=== PATIENT | female | born 1985 | race African-American/Black ===

== ENCOUNTER 2025-04-03 14:25 | Inpatient (IN) | payer OTHER ==
[2025-04-03 15:36] LABS: ABSOLUTE IMMATURE GRANULOCYTES 0.11 x10^3/uL (0.0-0.031); BASOPHILS # 0.02 x10^3/uL (0.01-0.08); EOSINOPHIL % 0.9 % (0.7-5.8); EOSINOPHILS # 0.11 x10^3/uL (0.04-0.36); MCHC 33.1 g/dl (32.2-35.5); MEAN CELL VOLUME 90.9 fl (79.4-94.8); MEAN PLT VOLUME 9.9 fl (9.4-12.3); MONOCYTE # 0.94 x10^3/uL (0.24-0.86); MONOCYTE % 7.9 % (4.7-12.5); RDW 14.7 % (12.1-16.8)
[2025-04-03 15:43] LABS: INR 0.95 (0.83-1.09); PROTHROMBIN TIME (PATIENT) 10.4 SEC (9.7-13.0)
[2025-04-03 15:46] LABS: ACTIVATED PTT 29.1 SECONDS (25.2-36.5)
[2025-04-03 16:11] LABS: CO2 20 mmol/L (21-32); GLUCOSE,RANDOM 91 mg/dL (74-106)
[2025-04-03 16:14] LABS: CREATININE 0.6 mg/dL (0.55-1.3)
[2025-04-03 16:27] VITALS: BMI 33.1
[2025-04-03] MEDS: ELECTROLYTE-148 SOLN 1,000 ML IV SCH (16:45)
[2025-04-03 16:59] LABS: HIV INTERPRETATION NEGATIVE (NEGATIVE)
[2025-04-03] MEDS ORDERED: OXYTOCIN 30 UNITS in 0.9% NS 30 UNIT/500 ML INFUS.BAG IVPB ONE (17:59)
[2025-04-03] MEDS ORDERED: AMPICILLIN SODIUM 2 GM VIAL ONE (18:30)
[2025-04-03] MEDS: OXYTOCIN 30 UNITS in 0.9% NS 30 UNIT/500 ML INFUS.BAG IVPB SCH (18:30)
[2025-04-03] MEDS: AMPICILLIN - 2 GM in SODIUM CHLORIDE 100 ML IVPB ONE (18:35)
[2025-04-03] MEDS ORDERED: SODIUM CHLORIDE 100 ML IVPB ONE (22:29)
[2025-04-03] MEDS ORDERED: AMPICILLIN SODIUM 1 GM VIAL ONE (22:29)
[2025-04-03] MEDS: AMPICILLIN - 1 GM in SODIUM CHLORIDE 100 ML IVPB SCH (22:35)
[2025-04-04] MEDS ORDERED: PROMETHAZINE HCL 25 MG/1 ML VIAL IVPB PRN (01:14)
[2025-04-04] MEDS ORDERED: BUTORPHANOL TARTRATE 1 MG/ML VIAL IVPUSH PRN (01:14)
[2025-04-04] MEDS ORDERED: FENTANYL/BUPIVACAINE/NS/PF - PCEA - 50 ML DISP.SYRIN EP ONE ×2 (02:21→06:27)
[2025-04-04] MEDS: FENTANYL/BUPIVACAINE/NS/PF - PCEA - 50 ML DISP.SYRIN EP SCH (02:40)
[2025-04-04] MEDS ORDERED: AMPICILLIN SODIUM 1 GM VIAL ONE ×2 (03:06→06:19)
[2025-04-04] MEDS ORDERED: SODIUM CHLORIDE 100 ML IVPB ONE ×2 (03:06→06:19)
[2025-04-04] MEDS ORDERED: NALOXONE HCL 0.4 MG/ML VIAL IVPUSH PRN (03:14)
[2025-04-04] MEDS ORDERED: OXYTOCIN 20 UNITS in 0.9% NS 20 UNIT/1,000 ML INFUS.BAG IV ONE (06:59)
[2025-04-04] MEDS ORDERED: LIDOCAINE HCL 1% PRESERVATIVE FREE - 30ML VIAL ONE (06:59)
[2025-04-04] MEDS: OXYTOCIN 20 UNITS in 0.9% NS 20 UNIT/1,000 ML INFUS.BAG IV SCH (08:30)
[2025-04-04] MEDS ORDERED: ACETAMINOPHEN 325 MG TABLET (FP) PO PRN (09:20)
[2025-04-04] MEDS ORDERED: WITCH HAZEL 50% (TUCKS) 40 PAD/JAR PAD TP PRN (09:20)
[2025-04-04] MEDS ORDERED: METHYLERGONOVINE MALEATE 0.2 MG/1 ML AMP IM PRN (09:20)
[2025-04-04] MEDS ORDERED: BENZOCAINE 28 GM HEMORRHOIDAL OINTMENT TP PRN (09:20)
[2025-04-04] MEDS ORDERED: BISACODYL 10 MG SUPP.RECT RC PRN (09:20)
[2025-04-04 09:37] LABS: CORD BASE EXCESS -4.7 mmol/L (0-2); CORD HCO3 21.6 mmHg (20-29); CORD PCO2 43.8 mmHg (30-78); CORD pH 7.31 (7.14-7.44)
[2025-04-04 09:37] LABS: CORD BASE EXCESS -6.3 mmol/L (0-2); CORD HCO3 21.6 mmHg (20-29); CORD PCO2 51.4 mmHg (30-78); CORD pH 7.241 (7.14-7.44)
[2025-04-04] MEDS: PRENATAL VITAMINS W/ FOLIC ACID TABLET (FP) PO SCH (11:34)
[2025-04-04] MEDS: IBUPROFEN 600 MG TABLET (FP) PO PRN (13:03)
[2025-04-04] MEDS: BENZOCAINE 20% 57 GM BOTTLE TP PRN (19:41)
[2025-04-05 07:53] LABS: ABSOLUTE IMMATURE GRANULOCYTES 0.14 x10^3/uL (0.0-0.031); BASOPHILS # 0.04 x10^3/uL (0.01-0.08); EOSINOPHIL % 1.2 % (0.7-5.8); EOSINOPHILS # 0.19 x10^3/uL (0.04-0.36); MCHC 32.6 g/dl (32.2-35.5); MEAN CELL VOLUME 91.9 fl (79.4-94.8); MEAN PLT VOLUME 10.0 fl (9.4-12.3); MONOCYTE # 1.21 x10^3/uL (0.24-0.86); MONOCYTE % 7.6 % (4.7-12.5); RDW 14.9 % (12.1-16.8)
[2025-04-05] MEDS ORDERED: SENNOSIDES/DOCUSATE COMBO (SENNA PLUS) TABLET (UD) PO PRN (22:00)
[2025-04-06 00:32] VITALS: RESP 18
[2025-04-06 10:54] VITALS: BP 119/82; PULSE 108; TEMP 98.2
== END 2025-04-06 12:30 | disposition home or self-care (01) | DRG 560 ==
LOC: JLDR 14:25 → J3W 04-04 10:54
PROVIDERS: ADMIT Obstetrics & Gynecology; ATTEND Obstetrics & Gynecology
PROC: 0KQM0ZZ Repair Perineum Muscle, Open Approach (ICD-10-PCS; principal; 2025-04-04)
PROC: 10E0XZZ Delivery of Products of Conception, External Approach (ICD-10-PCS; 2025-04-04)
DX: O69.81X0 Labor and delivery complicated by cord around neck, without compression, not applicable or unspecified (principal); O70.1 Second degree perineal laceration during delivery; Z3A.39 39 weeks gestation of pregnancy; Z37.0 Single live birth
CPT/HCPCS: 36415; 36600; 59409; 80048; 82803; 85025; 85610; 85730; 86780; 86803; 86850; 86900; 86901; 87389; 88307-TC